=== PATIENT | male | born 1950 | race Caucasian/White ===

== ENCOUNTER → 2017-08-02 | Outpatient (CLI) | payer MEDICARE, BC ==
[2017-08-02 10:02] LABS: Basophils % (A) 1 %; CH 29.4; CHCM 34.4; Eosinophils # (A) 0.1 k/uL (0-0.7); Eosinophils % (A) 1 %; HCT 43.3 % (39.0-53.0); HDW 2.82; HGB 14.9 gm/dL (13.0-17.5); Luc % (Auto) 2; Lymphocytes # (A) 1.4 k/uL (1.0-4.8); Lymphocytes % (A) 25 %; MCH 29.5 pg (25.0-35.0); MCHC 34.4 g/dL (31.0-37.0); MCV 85.9 fL (80.0-100.0); Mean Platelet Volume 7.2; Monocytes # (A) 0.2 k/uL (0-1.0); Monocytes % (A) 4 %; Neutrophils # (A) 3.6 k/uL (1.3-7.7); Neutrophils % (A) 67 %; RBC 5.04 m/uL (4.30-5.90); WBC 5.4 k/uL (3.8-10.6); WBC (Perox) 5.64
[2017-08-02 10:13] LABS: Anion Gap 9 mmol/L; Blood Urea Nitrogen 18 mg/dL (9-20); Calcium 9.7 mg/dL (8.4-10.2); Carbon Dioxide 26 mmol/L (22-30); Chloride 104 mmol/L (98-107); Glucose 118 mg/dL (74-99); Non-African American GFR(MDRD) >60 (>60 ml/min/1.73 sqM); Potassium 4.7 mmol/L (3.5-5.1); Sodium 139 mmol/L (137-145)
== END | disposition home or self-care (01) ==
LOC: LABPAT 09:10
PROVIDERS: ATTEND Urology
DX: Z01.812 Encounter for preprocedural laboratory examination (principal); C61 Malignant neoplasm of prostate; R53.83 Other fatigue; E78.1 Pure hyperglyceridemia; R35.0 Frequency of micturition
CPT/HCPCS: 80048; 85025; 86850; 86900; 86901; 87086

== ENCOUNTER 2017-08-09 07:45 | Inpatient (IN) | payer MEDICARE, BC ==
[2017-08-07 08:56] VITALS: BMI 28.6
[~2017-08-09 07:45] MED LIST: DEXAMETHASONE SOD PHOSPHATE 10 MG/ML 1 ML VIAL IV ONE; HEPARIN SODIUM,PORCINE 5,000 UNIT/ML 1 ML VIAL SQ ONE; HYDROmorphone 1 MG/ML 1 ML SYRINGE IVP PRN; ONDANSETRON 4 MG/2 ML VIAL IVP ONE; SCOPOLAMINE 1.5MG/72HR PATCH TRANSDERM ONE; ceFAZolin 2 GM in SODIUM CHLORIDE 0.9% 100 ML IVPB ONE
[2017-08-09] MEDS: LIDOCAINE 1% 20 ML VIAL (10MG/ML) FOR IV START INTRADERMA PRN ×2 (11:35→11:36)
[2017-08-09] MEDS: LACTATED RINGERS 1,000 ML IV SCH (11:36)
[2017-08-09 11:53] LABS: Glucose,Whole Blood 100 mg/dL (75-99)
[2017-08-09] MEDS ORDERED: LIDOCAINE 1% INJ 10MG/ML (20 ML MDV) ONE ×2 (12:34)
[2017-08-09] MEDS ORDERED: PROPOFOL 10 MG/ML 20 ML VIAL IV ONE ×2 (12:34)
[2017-08-09] MEDS ORDERED: MORPHINE SULFATE 10 MG/ML SYRINGE ONE ×2 (12:34)
[2017-08-09] MEDS ORDERED: SUCCINYLCHOLINE CHLORIDE 100 MG/5 ML SYR IV ONE ×2 (12:34)
[2017-08-09] MEDS ORDERED: GLYCOPYRROLATE 0.2 MG/ML 2 ML VIAL ONE ×2 (12:34)
[2017-08-09] MEDS ORDERED: fentaNYL (PF) 50 MCG/ML 2 ML AMP ONE ×2 (12:34)
[2017-08-09] MEDS ORDERED: ROCURONIUM BROMIDE 10 MG/ML 10 ML VIAL IV ONE ×2 (12:34)
[2017-08-09] MEDS ORDERED: MIDAZOLAM 2 MG/2 ML VIAL ONE ×2 (12:34)
[2017-08-09] MEDS ORDERED: NEOSTIGMINE 1 MG/ML 10 ML VIAL ONE ×2 (12:34)
[2017-08-09] MEDS ORDERED: BUPIVACAINE (PF) 0.25% 30 ML VIAL SQ ONE ×2 (13:11→16:30)
[2017-08-09] MEDS ORDERED: LACTATED RINGERS 1,000 ML IV ONE (15:29)
[2017-08-09] MEDS ORDERED: KETOROLAC 30 MG/ML 1 ML VIAL IVP PRN (16:30)
[2017-08-09] MEDS ORDERED: MAG HYDROX/AL HYDROX/SIMETH 30 ML CUP PO PRN (16:30)
[2017-08-09] MEDS ORDERED: ACETAMINOPHEN TAB 325 MG TAB PO PRN (16:30)
[2017-08-09] MEDS ORDERED: ONDANSETRON 4 MG/2 ML VIAL IVP PRN (16:30)
[2017-08-09] MEDS ORDERED: HYDROmorphone 1 MG/ML 1 ML SYRINGE IVP PRN (16:33)
[2017-08-09] MEDS ORDERED: PROPOFOL 1,000 MG/100 ML VIAL IV SCH (17:30)
--- NOTE | 2017-08-09 17:59 | XR ---
EXAMINATION TYPE: XR chest 1V portable DATE OF EXAM: 08/09/2017 COMPARISON: 03/05/2016 HISTORY: ET tube tip placement TECHNIQUE: Single frontal view of the chest is obtained. FINDINGS: ET tube tip superimposed over the mid trachea at the level of the head of the clavicles. Portable supine technique is insensitive for the diagnosis of pneumothorax or pneumoperitoneum. Subcu taneous emphysema is noted over the left left lateral costophrenic angle and in the right supraclavic ular fossa. RIGHT LUNG appears clear and well expanded. LEFT LUNG is predominantly clear, but there are linear bands of added opacity with sharp interfaces s uggesting possible pneumothorax. This can be further evaluated with crosstable lateral x-ray radiogra phy or noncontrast CT. IMPRESSION: 1. ET TUBE TIP SUPERIMPOSED OVER THE MID TRACHEA. 2. FINDINGS SUSPICIOUS FOR A TINY LEFT PNEUMOTHORAX.
--- NOTE | 2017-08-09 18:25 | P.OP ---
Date of Procedure: 08/09/17 Preoperative Diagnosis: Adenocarcinoma of the Prostate, Clinical Stage [id number] Postoperative Diagnosis: Same Procedure(s) Performed: Robotic-assisted Laparoscopic Prostatectomy (RALP) With Bilateral Pelvic Lymphadenectomy Anesthesia: DA Surgeon: Dallas Guerra Estimated Blood Loss (ml): 350 IV fluids (ml): 900 Pathology: other (Prostate, seminal vesicles, bilateral pelvic lymph nodes) Condition: stable Disposition: PACU Indications for Procedure: The patient is a 67-year-old male evaluated for a rising PSA level. He underwent a prostate ultrasound with biopsies, revealing Shoshone's 6/7 adenocarcinoma in 11 of 12 biopsies. I had a lengthy discussion with the patient and his , reviewing alternative treatment options. He has elected to undergo a partial nerve sparing RALP. Bilateral pelvic lymphadenectomies will be performed. The procedure was reviewed in detail, including potential risks. He understands the likelihood of postoperative erectile dysfunction despite partial nerve sparing, and he is also aware of the possible need for adjuvant therapy. Operative Findings: No evidence of extraprostatic disease. Description of Procedure: The patient was taken in the operating room and placed in the dorsal lithotomy position, with his legs supported in Pal stirrups. He was carefully positioned on a beanbag for stability. The abdomen and external genitalia were prepped and draped sterilely. A Patel catheter was inserted. The Veress needle was passed through the anterior abdominal wall immediately cephalad to the umbilicus, and insufflation was performed to a pressure of 20 mm Hg. Once insufflation was performed, the Veress needle was removed and a supraumbilical incision was made, through which a 12 mm camera port was placed. Under camera guidance, 3 8 mm robotic ports were placed, 2 on the left and one on the right. An additional 12 mm port was placed on the right lateral side for use as an client services assistant port. A 5 mm port was placed to the right of the camera port for suction. The patient was placed in Trendelenburg position, and docking was then performed to the da Lu system utilizing a 4-arm approach. The abdomen was examined. The sigmoid colon was mobilized out of the pelvis. The peritoneum was incised lateral to the medial umbilical ligaments bilaterally , exposing the pubis. The peritoneum was then incised across the midline, allowing the bladder flap to be taken down. The endopelvic fascia was opened bilaterally, and muscular attachments from the urogenital diaphragm were swept away from the prostate. Bilateral pelvic lymphadenectomies were performed in the standard fashion. The peritoneal incisions were extended in a cephalad direction, and the vas deferens were divided bilaterally. Margins of dissection were the bifurcation of the iliac vessels proximally, the circumflex iliac vein distally, the external iliac artery laterally, and the obturator nerve medially. A combination of sharp and blunt dissection was used. Care was taken to avoid any neurovascular injury, and the use of monopolar electrocautery was avoided immediately adjacent to neurovascular structures. The lymphatic package was clipped distally. No enlarged lymph nodes were encountered. On the left side, the lymphatic tissue was quite adherent to the pelvic sidewall. In the course of the dissection, the obturator artery was transected. The ends were identified and clipped, obtaining excellent hemostasis. The vesical neck was incised transversely, down to the lumen. The Patel catheter was brought out through the anterior vesical neck incision and was used for traction. The posterior aspect of the vesical neck was incised, such that the full-thickness of the vesical neck was divided. The anterior layer of the Denonvilliers fascia was incised, exposing the vas deferens. Each were isolated and divided. Next, each of the seminal vesicles were dissected away from adjacent tissues, and vascular attachments were cauterized and divided. The posterior leaf of Denonvilliers fascia was incised transversely, allowing entry into the plane between the prostate and rectum. With lateral spreading, this plane was developed down to the apex. This exposed the lateral vascular pedicles bilaterally. These were clipped and divided in an antegrade fashion, down to the apex. The use of electrocautery was avoided to prevent thermal damage to the nerves. However, given the volume of disease, the plane of dissection was not immediately adjacent to the prostate. The remaining apical attachments were swept away from the prostate. The dorsal venous complex was incised, as well as periurethral tissue. At this point, only the urethra remained intact. This was transected immediately distal to the prostatic apex using cold scissors. The specimen was placed within a specimen bag. The dorsal venous complex was sutured using a V-Loc suture in a running fashion. A second V-Loc suture was then used to place the Julio Cesar stitch, incorporating the rhabdosphincter and the edge of Denonvilliers fascia. This allowed the bladder to be taken down to the urethra, leaving the vesical neck immediately adjacent to the urethra. The vesicourethral anastomosis was then performed using a V-Loc suture in a running fashion. After completing the anastomosis, an 18-[place] Patel catheter was placed and approximately 150 mL of 0.9 normal saline were instilled into the bladder. No extravasation of irrigant from the vesicourethral anastomosis was noted. Hemostasis was noted at this time to be excellent, and it was thus felt that a drain was unnecessary. The patient was returned to the supine position. Undocking was performed, and the specimen bag sutures were passed through the camera port. After removing all the ports and allowing all of the CO2 to be released from the peritoneal cavity, the camera port incision was enlarged to allow removal of the surgical specimen. The fascia of this incision was then closed using 0 Vicryl suture in an interrupted [id number] fashion. The fascia of the 12 mm client services assistant port was closed using 0 Vicryl suture. Each of the skin incisions were then closed using 4-0 Monocryl suture in a subcuticular fashion. Marcaine was injected at each of the incision sites. Dermabond was applied to each incision. The Patel catheter was connected to gravity drainage. All sponge and needle counts were correct. The patient tolerated the procedure well was taken to the recovery room in stable condition.
[2017-08-09] MEDS: DEXTROSE 5%-0.45% NACL 1,000 ML IV SCH (23:18)
[2017-08-09] MEDS: HEPARIN SODIUM,PORCINE 5,000 UNIT/ML 1 ML VIAL SQ SCH (23:19)
[2017-08-10 08:05] VITALS: BP 151/71; PULSE 84; RESP 16; TEMP 96.7
[2017-08-10] MEDS: DEXTROSE 5%-0.45% NACL 1,000 ML IV SCH (08:06)
[2017-08-10] MEDS: HEPARIN SODIUM,PORCINE 5,000 UNIT/ML 1 ML VIAL SQ SCH (08:06)
[2017-08-10] MEDS: LACTATED RINGERS 1,000 ML IV SCH (08:06)
--- NOTE | 2017-08-10 09:53 | P.PN ---
Progress Note - Text The patient is one day post robot-assisted laparoscopic radical prostatectomy. He says that he is comfortable and has taken minimal analgesics since the surgery. He is ambulatory and denies any shortness of breath. He is tolerating a diet but says he is not very hungry because he has some gas. Physical exam-abdomen is soft and incisions are uninflamed. Urine output is clear. Impression-good recovery following robot-assisted laparoscopic radical prostatectomy. The patient will be discharged with his catheter and will follow -up with Dr. Guerra on 08/16. His path report is not available yet but should be available when he is seen for follow-up.
== END 2017-08-10 11:55 | disposition home or self-care (01) | DRG 708 ==
LOC: 2ORWHC 10:57 → EDSTATUS 12:30 → 3SUR 16:31 → 2ORWHC 16:31 → 5ONC 20:21 → 3SUR 21:09
PROVIDERS: ADMIT Urology; ATTEND Urology
PROC: 8E0W4CZ Robotic Assisted Procedure of Trunk Region, Percutaneous Endoscopic Approach (ICD-10-PCS; principal; 2017-08-09 12:30)
PROC: 0VT04ZZ Resection of Prostate, Percutaneous Endoscopic Approach (ICD-10-PCS; principal; 2017-08-09 12:30)
PROC: 07TC4ZZ Resection of Pelvis Lymphatic, Percutaneous Endoscopic Approach (ICD-10-PCS; principal; 2017-08-09 12:30)
DX: C61 Malignant neoplasm of prostate (principal)
CPT/HCPCS: 71010; 86850; 86900; 86901; 88305; 88307; 88309; 94002; 94770

== ENCOUNTER → 2019-08-12 | Outpatient (CLI) | payer MEDICARE, BC ==
--- NOTE | 2019-08-12 13:37 | XR ---
EXAMINATION TYPE: XR chest 2V DATE OF EXAM: 08/12/2019 COMPARISON: Chest x-ray August 09, 2017 HISTORY: Cough for 4 weeks. TECHNIQUE: Frontal and lateral views of the chest are obtained. FINDINGS: There is a small focus of lateral left basilar linear scarring and/or atelectasis. There i s additional more suspicious retrocardiac opacity on 2 views. Right lung is clear. No pleural effusio n or pneumothorax is seen bilaterally. The cardiac silhouette size is within normal limits. The oss eous structures are intact. IMPRESSION: Suspicious retrocardiac acute infiltrate and/or atelectasis. Consider progress two view chest xray after treatment.
== END | disposition home or self-care (01) ==
LOC: RADXRMAIN 13:08
PROVIDERS: ATTEND Internal Medicine
DX: R05 Cough (principal)
CPT/HCPCS: 71046

== ENCOUNTER → 2019-09-04 | Outpatient (CLI) | payer MEDICARE, BC ==
--- NOTE | 2019-09-04 11:34 | XR ---
EXAMINATION TYPE: XR chest 2V DATE OF EXAM: 09/04/2019 COMPARISON: Chest x-ray August 12, 2019. HISTORY: Cough. TECHNIQUE: Frontal and lateral views of the chest are obtained. FINDINGS: Improved aeration in the retrocardiac opacity seen best on prior lateral view . There is no new suspicious focal air space opacity, pleural effusion, or pneumothorax seen. The cardiac silhoue tte size is stable and within normal limits. The osseous structures are intact. IMPRESSION: No new acute infiltrate. Interval Resolution of retrocardiac acute infiltrate noted
== END | disposition home or self-care (01) ==
LOC: RADXRMAIN 11:11
PROVIDERS: ATTEND Internal Medicine
DX: R05 Cough (principal)
CPT/HCPCS: 71046

== ENCOUNTER → 2019-10-19 | Outpatient (CLI) | payer MEDICARE, BC ==
--- NOTE | 2019-10-20 04:30 | XR ---
EXAMINATION TYPE: XR chest 2V DATE OF EXAM: 10/19/2019 COMPARISON: 09/04/2019 HISTORY: 69-year-old male with productive cough and left lower quadrant rales. TECHNIQUE: Frontal and lateral views FINDINGS: The heart is normal size. Aorta and pulmonary vasculature within normal limits. There is focal patchy left basilar, retrocardiac opacity. No pleural effusion. IMPRESSION: Basilar left lower lobe patchy opacity. Pneumonia not excluded.
== END | disposition home or self-care (01) ==
LOC: RADXRMAIN 16:07
PROVIDERS: ATTEND Internal Medicine
DX: R91.8 Other nonspecific abnormal finding of lung field (principal); R09.89 Other specified symptoms and signs involving the circulatory and respiratory systems; R05 Cough
CPT/HCPCS: 71046

== ENCOUNTER → 2020-01-29 | Outpatient (CLI) | payer MEDICARE, BC ==
--- NOTE | 2020-01-29 09:23 | CT ---
EXAMINATION TYPE: CT abdomen pelvis wo con DATE OF EXAM: 01/29/2020 COMPARISON: HISTORY: Lt flank pain, hematuria CT DLP: 663.3 mGycm Automated exposure control for dose reduction was used. TECHNIQUE: Helical acquisition of images from the lung bases through the pelvis. FINDINGS: Lack of contrast could compromise sensitivity of the exam. LUNG BASES: No significant abnormality is appreciated. AORTA: No significant abnormality is appreciated. LIVER/GB: Liver shows low attenuation likely due to underlying hepatic steatosis. Gallbladder is norm al. PANCREAS: No significant abnormality is seen. SPLEEN: No significant abnormality is seen. ADRENALS: No significant abnormality is seen. KIDNEYS: No evident hydronephrosis or renal calculus. There is no ureteral calculus. REPRODUCTIVE ORGANS: No significant abnormality is seen. URINARY BLADDER: Not distended. BOWEL: Diverticular change seen within the colon FREE AIR: No Free Air is visible. ASCITES: None visible. PELVIC ADENOPATHY: None visualized. RETROPERITONEAL ADENOPATHY: No Retroperitoneal Adenopathy visible. OSSEOUS STRUCTURES: Degenerative disc changes are present in the visualized spine. Arthropathy prese nt at the right sacroiliac joint. There is a spinal curvature, facet arthropathy at the lower lumbar spine. IMPRESSION: NONCONTRAST EXAM. DIVERTICULOSIS. LIMITATIONS DESCRIBED. POSSIBLE HEPATIC STEATOSIS.
== END | disposition home or self-care (01) ==
LOC: RADCTMAIN 08:44
PROVIDERS: ATTEND Urology
DX: K57.30 Diverticulosis of large intestine without perforation or abscess without bleeding (principal)
CPT/HCPCS: 74176